=== PATIENT | female | born 1985 | race Caucasian/White ===

== ENCOUNTER 2020-07-28 04:39 | Emergency (ER) | payer OTHER ==
[~2020-07-28] VITALS: Ht 157.5 cm; Wt 59.0 kg
[2020-07-28] MEDS ORDERED: ZOFRAN ODT4 MG PO (05:15)
[2020-07-28] MEDS ORDERED: HYDROCODON-ACE1 EAC8 PO (05:15)
[2020-07-28 05:59] VITALS: BP 145/82
== END 2020-07-28 05:59 | disposition home or self-care (01) ==
LOC: M.ERS 04:39
DX: S93.492A Sprain of other ligament of left ankle, initial encounter (principal); Z88.0 Allergy status to penicillin; X50.9XXA Other and unspecified overexertion or strenuous movements or postures, initial encounter; Y93.68 Activity, volleyball (beach) (court); Y92.89 Other specified places as the place of occurrence of the external cause; Y99.8 Other external cause status